=== PATIENT | female | born 1975 ===

== ENCOUNTER 2016-11-28 14:12 | Emergency (ER) | payer OTHER ==
[2016-11-28 14:22] VITALS: BMI 24.1
[2016-11-28 14:27] VITALS: RESP 18; TEMP 98.4
--- NOTE | 2016-11-28 14:58 | RAD ---
Indication: Fall Left 5th digit, foot radiographs Comparison: None available Findings: Acute oblique displaced fracture deformity of the proximal 5th phalanx with associated soft tissue swelling. Chronic appearing deformity, 2nd metatarsal. The remainder of the visualized osseous structures appear unremarkable. No evidence of radiopaque foreign body. Impression: Acute oblique displaced fracture deformity of the proximal 5th phalanx with associated soft tissue swelling.
--- NOTE | 2016-11-28 15:08 | C.PDOC ---
History Of Present Illness 41 y/o female presents to the ED with complains of injury to left toe. Pt states she stubbed left 5th digit last night in the bathroom and today felt creppitus with movement of toes with associated bruising and swelling. 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 Denies weakness, numbness or any other complaints. Time Seen by Provider: 11/28/16 14:20 Chief Complaint (Nursing): Lower Extremity Problem/Injury History Per: Patient History/Exam Limitations: no limitations Onset/Duration Of Symptoms: Hrs Current Symptoms Are (Timing): Still Present Severity: Moderate Recent travel outside of the [place]: No Past Medical History Reviewed: Historical Data, Nursing Documentation, Vital Signs Vital Signs: Last Vital Signs Temp 98.4 F 11/28/16 14:23 Pulse 65 11/28/16 15:17 Resp 18 11/28/16 15:17 BP 106/73 11/28/16 15:17 Pulse Ox 100 11/28/16 15:17 - Medical History PMH: HIV Surgical History: Cholecystectomy (2000) Family History: States: Unknown Family Hx - Social History Hx Alcohol Use: No Hx Substance Use: No - Immunization History Hx Tetanus Toxoid Vaccination: No Hx Influenza Vaccination: Yes Hx Pneumococcal Vaccination: Yes Review Of Systems Except As Marked, All Systems Reviewed And Found Negative. Musculoskeletal: Positive for: Other (left 5th digit injury, bruising and swelling) Neurological: Negative for: Weakness, Numbness Physical Exam - Physical Exam Appears: Non-toxic, No Acute Distress Skin: Warm, Dry, No Rash Head: Atraumatic, Normacephalic Extremity: Capillary Refill (<2 seconds), No Deformity, Other (5th digit left foot and dorsum foot lateral aspect ecchymosis, swelling and tenderness) Neurological/Psych: Oriented x3, Normal Motor, Normal Sensation ED Course And Treatment O2 Sat by Pulse Oximetry: 98 (room air) Pulse Ox Interpretation: Normal Medical Decision Making Medical Decision Making: XR shows fracture to left phalanx. Splinted with tape, ortho boot applied. Disposition Counseled Patient/Family Regarding: Studies Performed, Diagnosis, Need For Followup, Rx Given - Disposition Referrals: [facility] [Outside] Disposition: HOME/ ROUTINE Disposition Time: 15:06 Condition: STABLE Instructions: [facility] (ED) Forms: General Discharge Instructions, Work Excuse - POA Present On Arrival: None - Clinical Impression Clinical Impression: Nondisplaced fracture of fifth left metatarsal bone - Scribe Statement The provider has reviewed the documentation as recorded by the Abelino Geller Provider Attestation: All medical record entries made by the Abelino were at my direction and personally dictated by me. I have reviewed the chart and agree that the record accurately reflects my personal performance of the history, physical exam, medical decision making, and the department course for this patient. I have also personally directed, reviewed, and agree with the discharge instructions and disposition.
[2016-11-28 15:18] VITALS: BP 106/73; PULSE 65
[2016-11-28 15:26] VITALS: O2SAT 98
== END 2016-11-28 15:17 | disposition home or self-care (01) ==
LOC: C.ER 14:12
DX: S92.515A Nondisplaced fracture of proximal phalanx of left lesser toe(s), initial encounter for closed fracture (principal); W22.09XA Striking against other stationary object, initial encounter; Y93.89 Activity, other specified; Y92.002 Bathroom of unspecified non-institutional (private) residence as the place of occurrence of the external cause

== ENCOUNTER 2017-12-20 15:02 | Emergency (ER) | payer OTHER ==
[2017-12-20 15:03] VITALS: BMI 24.1
[2017-12-20 15:39] VITALS: RESP 18; O2SAT 98
--- NOTE | 2017-12-20 17:35 | C.PDOC ---
History Of Present Illness 42 y/o female presents to the ER complaining of left foot pain which began after she twisted her foot at work 5 days ago. Patient reports that she immediately started working afterwards. However, she continued to have pain. Chief Complaint (Nursing): Lower Extremity Problem/Injury History Per: Patient History/Exam Limitations: no limitations Onset/Duration Of Symptoms: Days Current Symptoms Are (Timing): Still Present Severity: Moderate Past Medical History Reviewed: Historical Data, Nursing Documentation, Vital Signs Vital Signs: Last Vital Signs Temp 98.4 F 12/20/17 18:11 Pulse 59 L 12/20/17 18:11 Resp 18 12/20/17 18:11 BP 112/74 12/20/17 18:11 Pulse Ox 98 12/20/17 21:59 - Medical History PMH: HIV Surgical History: Cholecystectomy (2000) Family History: States: No Known Family Hx - Social History Hx Alcohol Use: No Hx Substance Use: No - Immunization History Hx Tetanus Toxoid Vaccination: Yes Hx Influenza Vaccination: Yes Hx Pneumococcal Vaccination: Yes Review Of Systems Except As Marked, All Systems Reviewed And Found Negative. Musculoskeletal: Positive for: Foot Pain (left foot pain) Neurological: Negative for: Weakness, Numbness Physical Exam - Physical Exam Appears: Non-toxic, No Acute Distress Skin: Normal Color, Warm, Dry Head: Atraumatic, Normacephalic Eye(s): bilateral: Normal Inspection Nose: Normal Oral Mucosa: Moist Neck: Supple Chest: Symmetrical Cardiovascular: Rhythm Regular Respiratory: Normal Breath Sounds, No Rales, No Rhonchi, No Wheezing Extremity: Normal ROM, No Tenderness (left lateral foot), Other ((-) erythema to left lateral foot) Neurological/Psych: Oriented x3, Normal Speech ED Course And Treatment O2 Sat by Pulse Oximetry: 98 (RA) Pulse Ox Interpretation: Normal Progress Note: X-Ray- Left Foot shows nondisplaced fx of 5th metatarsal bone. Posterior Splint applied by technician and checked by me. Crutches provided to patient. Patient has been discharged and instructed to follow up with podiatry in 1-2 days. Disposition - Disposition Disposition: HOME/ ROUTINE Disposition Time: 17:33 Condition: STABLE Additional Instructions: Follow up with PMD and V[facility]ish [facility]er within 1-2 days. Return to ED if feel worse. 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 - Scribe Statement The provider has reviewed the documentation as recorded by the Milliibe Cathi Murry Provider Attestation All medical record entries made by the Milliibe were at my direction and personally dictated by me. I have reviewed the chart and agree that the record accurately reflects my personal performance of the history, physical exam, medical decision making, and the department course for this patient. I have also personally directed, reviewed, and agree with the discharge instructions and disposition.
[2017-12-20 18:14] VITALS: BP 112/74; PULSE 59; TEMP 98.4
--- NOTE | 2017-12-21 11:11 | RAD ---
PROCEDURE: Left Foot Radiographs. HISTORY: injury COMPARISON: None. FINDINGS: BONES: Acute nondisplaced transverse fracture base of 5th metatarsal. Old healed fracture mid 2nd metatarsal diaphysis. Old healed fracture mid 5th proximal phalanx. No other acute fracture. JOINTS: Normal. SOFT TISSUES: Normal. OTHER FINDINGS: None. IMPRESSION: Acute nondisplaced transverse fracture base of 5th metatarsal.
== END 2017-12-20 18:55 | disposition home or self-care (01) ==
LOC: C.ER 15:02
DX: S92.355A Nondisplaced fracture of fifth metatarsal bone, left foot, initial encounter for closed fracture (principal); X50.9XXA Other and unspecified overexertion or strenuous movements or postures, initial encounter; Y92.89 Other specified places as the place of occurrence of the external cause; Y99.0 Civilian activity done for income or pay

== ENCOUNTER 2018-12-05 19:09 | Emergency (ER) | payer OTHER ==
[2018-12-05 19:09] VITALS: BMI 24.1
[2018-12-05 19:26] VITALS: TEMP 98.8
--- NOTE | 2018-12-05 20:01 | C.PDOC ---
History Of Present Illness Patient presents to the ED c/o left shoulder blade area pain. Patient reports pain worsens with movement and lifting. Patient reports she was diagnosed with bronchitis couple of weeks ago and is currently finishing a 7 day course of antibiotics. Patient states she still smokes half a pack a day. Patient today took Motrin 800 mg with no relief. Patient reports she does mild/moderate lifting at work. Patient denies fever, chills, headache, visual changes, neck pain. CP, SOB, palpitations, rash, generalized weakness, bowel incontinence. Time Seen by Provider: 12/05/18 20:01 Chief Complaint (Nursing): Back Pain History Per: Patient History/Exam Limitations: no limitations Onset/Duration Of Symptoms: Days Current Symptoms Are (Timing): Still Present Quality Of Discomfort: "Pain" Severity: Moderate Exacerbating Factor(s): Movement Recent travel outside of the [place]: No Additional History Per: Patient Past Medical History Reviewed: Historical Data, Nursing Documentation, Vital Signs Vital Signs: Last Vital Signs Temp 98.8 F 12/05/18 19:21 Pulse 73 12/05/18 19:21 Resp 22 12/05/18 19:21 BP 109/71 12/05/18 19:21 Pulse Ox 95 12/05/18 19:21 Primary Care Provider: Ana Brasher - Medical History PMH: HIV Surgical History: Cholecystectomy (2000) Family History: States: Unknown Family Hx - Social History Hx Alcohol Use: No Hx Substance Use: No - Immunization History Hx Tetanus Toxoid Vaccination: Yes Hx Influenza Vaccination: Yes Hx Pneumococcal Vaccination: Yes Review Of Systems Constitutional: Negative for: Fever, Chills Cardiovascular: Negative for: Chest Pain, Palpitations Respiratory: Negative for: Cough, Shortness of Breath Gastrointestinal: Negative for: Nausea, Abdominal Pain Musculoskeletal: Positive for: Shoulder Pain, Back Pain Skin: Negative for: Rash Neurological: Negative for: Weakness, Numbness, Headache, Dizziness Physical Exam - Physical Exam Appears: Non-toxic, No Acute Distress Skin: Warm, Dry, No Rash Head: Normacephalic Eye(s): bilateral: Normal Inspection Oral Mucosa: Moist Neck: Supple Chest: Symmetrical Cardiovascular: Rhythm Regular Respiratory: No Rales, No Rhonchi, No Wheezing Gastrointestinal/Abdominal: Soft, No Tenderness, No Distention Back: Other (left trapezius area tenderness) Extremity: Bilateral: Atraumatic, Normal Color And Temperature, Normal ROM Neurological/Psych: Oriented x3, Normal Speech, Normal Cognition Gait: Steady ED Course And Treatment - Laboratory Results Result Diagrams: 12/05/18 20:35 12/05/18 20:35 ECG: Interpreted By Me, Viewed By Me ECG Rhythm: Sinus Rhythm (65), Nonspecific Changes O2 Sat by Pulse Oximetry: 95 (ON RA) Pulse Ox Interpretation: Normal - Radiology CXR: Interpreted by Me, Viewed By Me CXR Interpretation: No: Infiltrates, Fracture, Pnemothorax Progress Note: PLan: - EKG. - Labs. - Aspirin 325 mg PO. - UA Reevaluation Time: 21:59 Reassessment Condition: Improved Medical Decision Making Medical Decision Making: Upon provider reevaluation patient is feeling better, is medically stable, and requires no further treatment in the ED at this time. Patient will be discharged home with Rx for naproxen, skelaxin . Counseling was provided and all questions were answered regarding diagnosis and need for follow up with dr brasher. There is agreement to discharge plan. Return if symptoms persist or worsen. Disposition Counseled Patient/Family Regarding: Studies Performed, Diagnosis, Need For Followup, Rx Given - Disposition Referrals: Ana Brasher MD [Non-Staff] - Disposition: HOME/ ROUTINE Disposition Time: 21:59 Condition: FAIR Additional Instructions: Please return if symptoms recur Prescriptions: Metaxalone [Skelaxin] 800 mg PO TID PRN #21 tablet PRN Reason: Muscle Spasm Naproxen [Naprosyn] 1 tab PO BID PRN #25 tab PRN Reason: Pain Instructions: Upper Back Pain (DC), Muscle Spasms (DC) Forms: [facility] (Turkmen), Work Excuse - Clinical Impression Clinical Impression: Thoracic back pain - Scribe Statement The provider has reviewed the documentation as recorded by the Scribe Yamil Gross All medical record entries made by the Scribe were at my direction and personally dictated by me. I have reviewed the chart and agree that the record accurately reflects my personal performance of the history, physical exam, medical decision making, and the department course for this patient. I have also personally directed, reviewed, and agree with the discharge instructions and disposition.
[2018-12-05] MEDS ORDERED: Aspirin 325 mg EC Tablets PO STA (20:06)
[2018-12-05] MEDS ORDERED: Aspirin 325 mg EC Tablets PO ONE (20:28)
[2018-12-05 20:38] LABS: HCG,QUALITATIVE URINE NEGATIVE (NEGATIVE)
[2018-12-05 20:40] LABS: SQUAMOUS EPITHIAL 5 /hpf (0-5); URINE BACTERIA RARE (<OCC); URINE BILIRUBIN NEGATIVE (NEGATIVE); URINE BLOOD 3+ (NEGATIVE); URINE CLARITY Hazy (Clear); URINE COLOR Yellow (YELLOW); URINE GLUCOSE (UA) NORMAL (Normal); URINE LEUKOCYTE ESTERASE TRACE Leu/uL (Negative); URINE PROTEIN NEGATIVE (NEGATIVE); URINE UROBILINOGEN NORMAL mg/dL (0.2-1.0)
[2018-12-05 20:41] LABS: BASO # 0.1 K/uL (0.0-0.2); BASO % 0.8 % (0.0-2.0); EOS # 0.1 K/uL (0.0-0.7); EOS % 1.8 % (0.0-4.0); HEMOGLOBIN 10.7 g/dL (11.0-16.0); LYMPH # 2.1 K/uL (1.0-4.3); LYMPH % 30.9 % (20.0-40.0); MEAN CELL VOLUME 94.4 fL (81.0-99.0); MEAN CORPUSCULAR HEMOGLOBIN 32.2 pg (27.0-31.0); MEAN CORPUSCULAR HGB CONC 34.1 g/dL (33.0-37.0); MEAN PLATELET VOLUME 8.3 fL (7.2-11.7); MONO # 0.4 K/uL (0.0-0.8); MONO % 6.2 % (0.0-10.0); NEUT # 4.1 K/uL (1.8-7.0); NEUT % 60.3 % (50.0-75.0); NRBC % 0.1 % (0.0-2.0); RBC 3.33 Mil/uL (3.80-5.20); RED CELL DISTRIBUTION WIDTH 12.3 % (11.5-14.5); WHITE BLOOD COUNT 6.8 K/uL (4.8-10.8)
[2018-12-05 21:05] LABS: ALBUMIN 3.8 g/dL (3.5-5.0); BLOOD UREA NITROGEN 8 mg/dL (7-17); CALCIUM 8.7 mg/dl (8.6-10.4); GFR NON-AFRICAN AMERICAN > 60
[2018-12-05 21:06] LABS: ALT/SGPT 17 U/L (9-52); AST/SGOT 29 U/L (14-36)
[2018-12-05 22:16] VITALS: BP 100/61; PULSE 64; RESP 20; O2SAT 98
--- NOTE | 2018-12-06 10:30 | RAD ---
HISTORY: back pain COMPARISON: Chest x-ray performed 02/20/15 TECHNIQUE: Chest PA and lateral, 2 views FINDINGS: LUNGS: Subtle hazy infiltrate within the right upper lobe. Please note that chest x-ray has limited sensitivity for the detection of pulmonary masses. PLEURA: No significant pleural effusion identified. No definite pneumothorax . CARDIOVASCULAR: Heart size appears within normal limits. Atherosclerotic calcifications present. OSSEOUS STRUCTURES: Plate and screw fixation of the proximal right humerus. VISUALIZED UPPER ABDOMEN: Unremarkable. OTHER FINDINGS: None. IMPRESSION: Subtle hazy infiltrate in the right upper lobe. Study marked for PA review.
--- NOTE | 2018-12-08 03:24 | CARD ---
APPROVED REPORT Date of service: 12/05/2018 EKG Measurement Heart [id number] <Conclusion> Normal sinus rhythm Normal ECG
== END 2018-12-05 22:16 | disposition home or self-care (01) ==
LOC: C.ER 19:09
DX: M54.6 Pain in thoracic spine (principal); R91.8 Other nonspecific abnormal finding of lung field; F17.210 Nicotine dependence, cigarettes, uncomplicated
CPT/HCPCS: 71046; 80053; 81001; 84484; 84703; 85025; 96374; 99284; J1885